=== PATIENT | male | born 1995 | race Caucasian/White ===

== ENCOUNTER 2017-07-09 13:30 | Emergency (ER) | payer BC ==
[~2017-07-09] VITALS: Ht 185.4 cm; Wt 73.4 kg
[2017-07-09 13:37] VITALS: Ht 185.4 cm; Wt 73.4 kg
--- NOTE | 2017-07-09 14:59 | EMERGENCY ROOM VISIT NOTE ---
History Report prepared by Renee: Sabina Kenney Under the Supervision of: Dr. Jerry Cobb M.D. First contact with patient: 14:54 Chief Complaint: PAIN (GENERALIZED) Stated Complaint: LARGE AMOUNT OF PAIN IN LEFT ARM AND BACK History of Present Illness The patient is a 22 year old male who presents to the Emergency Room with complaints of Social History Smoking Status: Never Smoker Physical Exam Vital Signs Date Time Temp Pulse Resp B/P (MAP) Pulse Ox O2 Delivery O2 Flow Rate FiO2 07/09/17 13:37 36.8 77 18 129/86 96 Room Air Departure Information Referrals No Doctor, Assigned (PCP) Patient Instructions My [facility]
[2017-07-09] MEDS ORDERED: CYCLOBENZAPRINE HCL 10 MG TAB PO STA (15:09)
--- NOTE | 2017-07-09 15:17 | EMERGENCY ROOM VISIT NOTE ---
History First contact with patient: 14:54 Chief Complaint: PAIN (GENERALIZED) Stated Complaint: LARGE AMOUNT OF PAIN IN LEFT ARM AND BACK History of Present Illness The patient is a 22 year old male who presents to the Emergency Room via private vehicle with complaints of "large amount of pain and left arm and back" . The patient states that he fractured his left hand 5 years ago on the dorsal aspect. Since then he has had pain in the left hand, left wrist and now 1-2 years ago spread to his left elbow and now into his left shoulder. He states that over the past week he now feels pain in the left leg. It has been progressing. He states he has had x-rays and MRIs of his left hand, and x-rays of his neck, shoulder and back. He states that it is no interfering with this will because of his pain. He has tried physical therapy and his semen a hand specialist without a defined problem. He denies any fevers, chills, chest pain , shortness of breath, vision changes, speech troubles, medical history. He notes that at times will be minimal numbness/tingling at the sites that are painful. There is no family history of MS or are a. He notes this is all left- sided. There is no speech troubles, or weakness. Review of Systems A complete 10-point Review of Systems was discussed with the patient, with pertinent positives and negatives listed in the History of Present Illness. All remaining Review of Systems questions can be considered negative unless otherwise specified. Social History Smoking Status: Never Smoker Current/Historical Medications Scheduled Cyclobenzaprine Hcl (Flexeril), 10 MG PO TID Physical Exam Vital Signs Date Time Temp Pulse Resp B/P (MAP) Pulse Ox O2 Delivery O2 Flow Rate FiO2 07/09/17 17:05 36.7 68 18 129/70 98 Room Air 07/09/17 16:35 36.7 69 18 128/61 98 Room Air 07/09/17 14:57 36.6 87 18 134/101 98 Room Air Nasal Cannula 07/09/17 13:37 36.8 77 18 129/86 96 Room Air Physical Exam VITAL SIGNS - Vital signs and nursing notes were reviewed. Stable. GENERAL - 22-year-old male appearing his stated age who is in no acute distress. Communicates well with provider and answers questions appropriately. SKIN - Without rashes. Skin overlying the left hand, arm, chest and back are unremarkable. Skin overlying the left leg is unremarkable. HEAD - NC/AT. EYES - PERRL with EOMI bilaterally. Sclera anicteric. EARS - No deformities of external structures noted on gross examination bilaterally. NOSE - Midline and without cyanosis. No epistaxis or purulent drainage noted. MOUTH/OROPHARYNX - Without perioral cyanosis. Buccal mucosa pink and moist and without leukoplakia. NECK - Neck with FROM. Supple to palpation. No lymphadenopathy noted. No nuchal rigidity. LUNGS - Chest wall symmetric without accessory muscle use, intercostals retractions, or central cyanosis. Normal vesicular breath sounds CTA B/L. No wheezes, rales, or rhonchi appreciated. CARDIAC - RRR with S1/S2. No murmur, rubs, or gallops appreciated. ABDOMEN - Abdominal contour normal without pulsations or visible masses. BS normoactive all four quadrants. No tenderness, palpable masses, hepatosplenomegaly, or ascites noted. EXTREMITIES - No clubbing or peripheral cyanosis. No pretibial edema present. Palpation of the patient's left musculature elicits tenderness/muscle spasm. Patient notes alleviation of pain with pressure. +5/5 strength noted in UE/LE bilaterally. NEUROLOGIC - Cranial nerves II through XII grossly intact. Sensory intact to light touch throughout. PSYCH - A&O, and cooperates fully with examiner. Pt is very pleasant and interacts well with examiner. Medical Decision & Procedures Laboratory Results 07/09/17 15:19 Red Blood Count 5.33, Mean Corpuscular Volume 87.2, Mean Corpuscular Hemoglobin 30.4, Mean Corpuscular Hemoglobin Concent 34.8, Mean Platelet Volume 9.2, Neutrophils (%) (Auto) 56.8, Lymphocytes (%) (Auto) 28.3, Monocytes (%) (Auto) 10.4, Eosinophils (%) (Auto) 3.7, Basophils (%) (Auto) 0.7, Neutrophils # (Auto ) 3.99, Lymphocytes # (Auto) 1.99, Monocytes # (Auto) 0.73, Eosinophils # (Auto ) 0.26, Basophils # (Auto) 0.05 07/09/17 15:19 Test 07/09/17 00:00 07/09/17 15:19 Urine Color YELLOW Urine Appearance TURBID (CLEAR) Urine pH 7.5 (4.5-7.5) Urine Specific [place] 1.023 (1.000-1.030) Urine Protein NEG (NEG) Urine Glucose (UA) NEG (NEG) Urine Ketones NEG (NEG) Urine Occult Blood NEG (NEG) Urine Nitrite NEG (NEG) Urine Bilirubin NEG (NEG) Urine Urobilinogen NEG (NEG) Urine Leukocyte Esterase NEG (NEG) Urine WBC (Auto) 1-5 /hpf (0-5) Urine RBC (Auto) 0-4 /hpf (0-4) Urine Hyaline Casts (Auto) 1-5 /lpf (0-5) Urine Epithelial Cells (Auto) 5-10 /lpf (0-5) Urine Bacteria (Auto) NEG (NEG) White Blood Count 7.03 K/uL (4.8-10.8) Red Blood Count 5.33 M/uL (4.7-6.1) Hemoglobin 16.2 g/dL (14.0-18.0) Hematocrit 46.5 % (42-52) Mean Corpuscular Volume 87.2 fL (80-100) Mean Corpuscular Hemoglobin 30.4 pg (25-34) Mean Corpuscular Hemoglobin Concent 34.8 g/dl (32-36) Platelet Count 288 K/uL (130-400) Mean Platelet Volume 9.2 fL (7.4-10.4) Neutrophils (%) (Auto) 56.8 % Lymphocytes (%) (Auto) 28.3 % Monocytes (%) (Auto) 10.4 % Eosinophils (%) (Auto) 3.7 % Basophils (%) (Auto) 0.7 % Neutrophils # (Auto) 3.99 K/uL (1.4-6.5) Lymphocytes # (Auto) 1.99 K/uL (1.2-3.4) Monocytes # (Auto) 0.73 K/uL (0.11-0.59) Eosinophils # (Auto) 0.26 K/uL (0-0.5) Basophils # (Auto) 0.05 K/uL (0-0.2) RDW Standard Deviation 39.5 fL (36.4-46.3) RDW Coefficient of Variation 12.5 % (11.5-14.5) Immature Granulocyte % (Auto) 0.1 % Immature Granulocyte # (Auto) 0.01 K/uL (0.00-0.02) Erythrocyte Sedimentation Rate 9 mm/hr (0-14) Anion Gap 7.0 mmol/L (3-11) Est Creatinine Clear Calc Drug Dose 121.1 ml/min Estimated GFR () 123.5 Estimated GFR (Non- 106.6 BUN/Creatinine Ratio 18.2 (10-20) Calcium Level 9.3 mg/dl (8.5-10.1) Magnesium Level 2.1 mg/dl (1.8-2.4) Total Bilirubin 0.9 mg/dl (0.2-1) Aspartate Amino Transf (AST/SGOT) 13 U/L (15-37) Alanine Aminotransferase (ALT/SGPT) 19 U/L (12-78) Alkaline Phosphatase 62 U/L (45-117) Total Creatine Kinase 151 U/L (39-308) Creatine Kinase MB 0.9 ng/ml (0.5-3.6) Creatine Kinase MB Ratio 0.6 (0-3.0) C-Reactive Protein < 0.29 mg/dl (0-0.29) Total Protein 8.7 gm/dl (6.4-8.2) Albumin 4.3 gm/dl (3.4-5.0) Globulin 4.4 gm/dl (2.5-4.0) Albumin/Globulin Ratio 1.0 (0.9-2) Thyroid Stimulating Hormone (TSH) 1.710 uIu/ml (0.300-4.500) Rheumatoid Factor < 10.0 U/mL (0-15) Lyme Disease IgG Antibody NEG (NEG) Lyme Disease IgM Antibody NEG (NEG) Medications Administered Medications (Trade) Dose Ordered Sig/Nicole Route Start Time Stop Time Status Last Admin Dose Admin Cyclobenzaprine HCl (Flexeril Tab) 10 mg NOW STAT PO 07/09/17 15:09 07/09/17 15:11 DC 07/09/17 15:28 10 MG Medical Decision Patient was seen and evaluated as above. He presents to us today with pain of the left wrist, elbow, shoulder, back region and left leg. He is well on exam. No neurovascular deficit appreciated. At this time believe he is likely experiencing muscle spasms as pressing the muscle is very tense, and this actually helped with his pain. He was given Flexeril and reevaluated and feeling much better. I suspect given the examination consistent with musculoskeletal pain as well as a Flexeril/muscle relaxant helping this certainly is likely muscle related. However, because the patient has been experiencing continued and worsening pain, I will further look into emergent causes. IV access was initiated, and the above workup was performed. CBC reveals no concern of leukocytosis or anemia. ESR is within normal limits. Metabolic panel reveals no evidence of kidney or liver failure. He does appear to be slightly dehydrated. Protein high at 8.7. TSH normal. Urine is negative. Rheumatoid factor negative. Lyme disease negative. With the emergent causes being ruled out, and there is no evidence of neurovascular compromise, I believe he is stable for outpatient management with follow-up with [facility]. A bedside EKG was also performed and reveals sinus bradycardia, rate of 59 bpm with rightward axis. I suspect this is secondary to his tall and thin body habitus. I do not suspect PERC all negative. The patient appears stable for outpatient management and was happy with plan of care. He was educated upon management, educated upon worrisome symptoms in which to return, had questions about discharge, and was discharged home in good condition. Patient case was discussed with the attending physician. In evaluation treatment this patient the following differential diagnoses were entertained: PE, musculoskeletal injury, rheumatoid condition, vasculitis, brain tumor, neurologic compromise, MS, among others. Impression Primary Impression: muscle spasm, L side Departure Information Dispostion Home / Self-Care Condition GOOD Prescriptions Cyclobenzaprine Hcl (FLEXERIL) 10 Mg Tab 10 MG PO TID for 10 Days, #30 TAB Prov: Mynor Fox PA-C 07/09/17 Referrals No Doctor, Assigned (PCP) Jc Aponte, DO Patient Instructions My [facility] Additional Instructions You have been treated in the Emergency Department for Back Pain left arm and leg pain. You have received pain medicine in the emergency department which impairs your ability to operate a vehicle. It is illegal for you to drive after receiving these medicines. You have been prescribed Flexeril (cyclobenzaprine) 1 tabs orally, three times per day. Do NOT exceed 30 mg (3 tabs) per day. Take your first dose at bedtime as it can make you drowsy. Always take all medications as prescribed. For pain control, you can use the following [id number] medicines (if >12 yo): - Regular strength (325mg/tab) Tylenol (acetaminophen) 2 tabs every 4-6 hours as needed. Do not exceed 12 tablets in a 24 hour period. Avoid taking more than 3 grams (3000 mg) of Tylenol per day. This includes any other sources of acetaminophen you may take on a regular basis. - Regular strength (200 mg/tab) Advil (ibuprofen) 1-2 tabs every 4-6 hours as needed. Do not exceed a dose of 3200 mg per day. If this is an acute injury, ice can be applied to the area of pain for the first 3 days to help decrease pain and inflammation. After the first 3 days, a heating pad can be used over the area for continued soothing relief. You should schedule a follow-up appointment in 2-3 days with your Primary Care Provider ([facility]) for further evaluation and treatment of your back pain. Return to the Emergency Department if your current symptoms worsen despite treatment course outlined above, or if you develop any of the following symptoms : intractable pain despite aforementioned treatment course, loss of control of your bowel or bladder, numbness or tingling in your groin, or development of a fever.
[2017-07-09 15:57] LABS: BASO % 0.7 %; BASO ABS # 0.05 K/uL (0-0.2); COMPLETE YES; EOS % 3.7 %; HEMATOCRIT 46.5 % (42-52); IG% 0.1 %; LYMPH % 28.3 %; LYMPH ABS # 1.99 K/uL (1.2-3.4); MEAN CELL VOLUME 87.2 fL (80-100); MEAN CORPUSCULAR HEMOGLOBIN 30.4 pg (25-34); MEAN CORPUSCULAR HGB CONC 34.8 g/dl (32-36); MEAN PLATELET VOLUME 9.2 fL (7.4-10.4); MONO % 10.4 %; NEUT % 56.8 %; PLATELET COUNT 288 K/uL (130-400); RED BLOOD COUNT 5.33 M/uL (4.7-6.1); WHITE BLOOD COUNT 7.03 K/uL (4.8-10.8)
[2017-07-09 16:17] LABS: ALT/SGPT 19 U/L (12-78); BLOOD UREA NITROGEN 18 mg/dl (7-18); BUN/CREATININE RATIO 18.2 (10-20); C-REACTIVE PROTEIN < 0.29 mg/dl (0-0.29); CALCIUM 9.3 mg/dl (8.5-10.1); CARBON DIOXIDE 30 mmol/L (21-32); CHLORIDE 101 mmol/L (98-107); CREATININE 1.01 mg/dl (0.60-1.40); GLUCOSE 95 mg/dl (70-99); MAGNESIUM 2.1 mg/dl (1.8-2.4); POTASSIUM 3.9 mmol/L (3.5-5.1); SODIUM 138 mmol/L (136-145)
[2017-07-09 16:26] LABS: ALKALINE PHOSPHATASE 62 U/L (45-117); AST/SGOT 13 U/L (15-37); CKMB/CK RATIO 0.6 (0-3.0); RHEUMATOID FACTOR < 10.0 U/mL (0-15)
[2017-07-09 16:26] LABS: URINE APPEARANCE TURBID (CLEAR); URINE BILIRUBIN NEG (NEG); URINE COLOR YELLOW; URINE NITRITE NEG (NEG); URINE PH 7.5 (4.5-7.5); URINE SPECIFIC GRAVITY 1.023 (1.000-1.030); UROBILINOGEN NEG (NEG); ZZUR CULT IF INDIC CLEAN CATCH NO
[2017-07-09 16:27] LABS: MANUAL MICROSCOPIC REQUIRED? NO; REVIEW REQ? NO
--- NOTE | 2017-07-09 16:37 | DIAGNOSTIC IMAGING REPORT ---
ULTRASOUND LEFT LOWER EXTREMITY VENOUS CLINICAL HISTORY: Left leg pain. COMPARISON STUDY: No priors. TECHNIQUE: Real-time, grayscale, and color Doppler sonography of the deep veins of the left lower extremity was performed from the inguinal crease to the calf. Compression and augmentation were utilized. FINDINGS: There is no sonographic evidence of deep venous thrombosis identified in the left lower extremity. The common femoral, superficial femoral, and popliteal veins are patent and normally compressible. The greater saphenous vein and the profunda femoris vein at the junction with the common femoral vein are clear. The visualized calf veins are patent. IMPRESSION: There is no sonographic evidence of deep venous thrombosis identified in the left lower extremity. Electronically signed by: Shawn Vu M.D. 07/09/2017 4:36 PM Dictated Date/Time: 07/09/2017 4:36 PM
[2017-07-09 16:42] LABS: LYME DISEASE AB IGM NEG (NEG)
[2017-07-09 16:43] LABS: LYME DISEASE AB IGG NEG (NEG)
[2017-07-09] MEDS ORDERED: CYCL10TA6 PO (16:56)
[2017-07-09 17:05] VITALS: BP 129/70; PULSE 68; TEMP 36.7; O2SAT 98
== END 2017-07-09 17:13 | disposition home or self-care (01) ==
LOC: C.EDB 13:32 → C.EDD 17:13
DX: M62.838 Other muscle spasm (principal)

== ENCOUNTER → 2017-08-27 | Outpatient (CLI) | payer OTHER ==
--- NOTE | 2017-08-27 22:02 | DIAGNOSTIC IMAGING REPORT ---
PELVIS WITHOUT CONTRAST (MRI) CLINICAL HISTORY: SACROILIAC JOINT PAIN, LT LEG WEAKNESS pain. Neuropathy. TECHNIQUE: Multiaxial multiplanar MRI acquisition COMPARISON STUDY: None FINDINGS: Signal characteristics of all major osseous structures are unremarkable. There is no evidence for bone marrow replacing process. Hips are symmetric. No evidence for acetabular protrusion. Signal characteristics of the sacroiliac joints as well as sacral foramina are unremarkable. There is no evidence for abnormal mass or collection. Signal characteristics of the soft tissue structures are unremarkable. No evidence for mass collection or significant adenopathy. IMPRESSION: Normal study The above report was generated using voice recognition software. It may contain grammatical, syntax or spelling errors. Electronically signed by: Jaspal Alejo M.D. 08/27/2017 10:00 PM Dictated Date/Time: 08/27/2017 9:58 PM
== END | disposition home or self-care (01) ==
LOC: C.MRI 20:54
PROVIDERS: ATTEND Family Medicine
DX: M62.81 Muscle weakness (generalized) (principal); M25.559 Pain in unspecified hip; R29.898 Other symptoms and signs involving the musculoskeletal system

== ENCOUNTER → 2017-10-18 | Outpatient (CLI) | payer OTHER ==
[~2017-10-18] MED LIST: GABA-113 PO
--- NOTE | 2017-10-18 20:18 | DIAGNOSTIC IMAGING REPORT ---
BONE SCAN 3PHASE WHOLE BODY HISTORY: 22 years-old Male COMPLEX REGION PAIN SYNDROME patient presents with entire left-sided body pain, most pronounced within the left arm and shoulder. History of prior left hand fracture. COMPARISON: Pelvic MRI 08/27/2017 TECHNIQUE: 3 phase whole body bone scan was obtained utilizing 26.5 mCi technetium 99 MDP. Scan was obtained immediately and also 3 hours post injection. The right arm. FINDINGS: The blood flow images demonstrate increased vascular flow about the right upper extremity secondary to right arm tracer injection. Flow images of the upper body are otherwise symmetric and within normal limits. Additionally, there is symmetric normal appearing uptake of the shoulders and upper body on the blood pool and delayed images. Minimal convex right curvature of the upper thoracic spine. Physiologic tracer activity is noted within the soft tissues, kidneys, collecting systems and urinary bladder. Nonspecific mildly increased soft tissue uptake is noted within the left inguinal region which may be secondary to urinary contamination. There is intense focal radiotracer uptake within the region of the second metatarsal head seen on the whole body images. IMPRESSION: 1. Normal three-phase bone scan of the bilateral shoulders without scintigraphic findings to suggest complex regional pain syndrome. 2. Intense focal radiotracer uptake within the region of the second metatarsal head suggests possible fracture, stress fracture or bone lesion. Correlation with dedicated right foot radiographs recommended. The above report was generated using voice recognition software. It may contain grammatical, syntax or spelling errors. Electronically signed by: Zane Walden M.D. 10/18/2017 8:17 PM Dictated Date/Time: 10/18/2017 8:04 PM
== END | disposition home or self-care (01) ==
LOC: C.NUCL 15:55
PROVIDERS: ATTEND Physician Assistant Medical
DX: G90.50 Complex regional pain syndrome I, unspecified (principal)